=== PATIENT | male | born 1945 | race Caucasian/White ===

== ENCOUNTER → 2018-10-28 | Outpatient (CLI) | payer MEDICARE ==
[~2018-10-28] MED LIST: ADAL40KI SQ; ASPI-1197 PO; CELE200C PO; CLON1TAB23 PO; FOLI1TAB15 PO; GABA300S PO; LEFL10TA15 PO; MULT-1203 PO; OMEG1CAP6 PO; PRED5TAB44 PO; ROSU5TAB11 PO; TIMO.5OS OU; UBID400C6 PO; [UNRECOGNIZED DRUG - CODE] IL
--- NOTE | 2018-10-28 23:24 | NUR ---
CELEBREX 200 MG BID, GABAPENTIN 300 MG TID ,PREDNISONE 5 MG AM, HUMIRA PEN 40L Q2 WKS, CRESTOR 5 MG DAILY, PANTOPRAZOLE 40 MG IN AM, LEFLUNATIDE 20, TIMOLOL OPTH 1 DROP AT EYE BID, LOSARTAN 100 MG, HYDROMORPHONE 0.4997 MG/ DAY IT PUMP, SYMBALTA 30 MG Addendum: 10/28/18 at 2328 by ATUL KUO Amended: Links added.
== END | disposition home or self-care (01) ==
LOC: SLP 20:21
PROVIDERS: ATTEND Internal Medicine
DX: G47.33 Obstructive sleep apnea (adult) (pediatric) (principal)
CPT/HCPCS: 95811